=== PATIENT | female | born 1960 | race Asian ===

== ENCOUNTER 2016-08-09 05:31 | Emergency (ER) | payer BC ==
[~2016-08-09] VITALS: Ht 157.5 cm; Wt 54.4 kg
[2016-08-09 06:31] VITALS: BP 108/66
[2016-08-09 07:33] LABS: Urine Bilirubin Negative (Negative); Urine Glucose Normal (Normal); Urine Ketone Negative (Negative); Urine Nitrite Negative (Negative); Urine RBC 23212 /hpf (0 - 4); Urine Urobilinogen Normal (Negative); Urine WBC Clumps PRESENT /hpf (None Seen)
[2016-08-09 07:53] LABS: Urine Squamous Epithelial Cell FEW /hpf (<5)
[2016-08-09 07:55] LABS: Urine Color Red (Yellow)
[2016-08-09 07:56] LABS: Urine Blood 3+ /uL (Negative)
== END 2016-08-09 06:42 | disposition home or self-care (01) ==
LOC: ER 05:35
DX: N39.0 Urinary tract infection, site not specified (principal)
CPT/HCPCS: 81001